=== PATIENT | male | born 1930 | race Caucasian/White ===

== ENCOUNTER 2016-11-01 14:44 | Emergency (ER) | payer MEDICARE ==
--- NOTE | ~2016-11-01 | EKG ---
PATIENT: RADHA CHURCH UNIT #: [id number] Ventricular Rate: 45 BPM Atrial Rate: 45 BPM P-R Interval: 154 ms QRS Duration: 92 ms Q-T Interval: 528 ms QTC Calculation(Bezet): 456 ms P Chandler: 43 degrees Calculated R Chandler: -2 degrees Calculated T Chandler: 12 degrees Diagnosis Line: Sinus bradycardia Diagnosis Line: Inferior infarct , age undetermined Diagnosis Line: Abnormal ECG Diagnosis Line: No previous ECGs available Diagnosis Line: Confirmed by SHRUTI HURLEY MD ([id number]) on 11/01/2016 Diagnosis Line: 6:59:39 PM INTERPRETING MD: XAVI TROTTER
--- NOTE | ~2016-11-01 | CR71 ---
[facility] A Service of [facility] & [facility] RADIOLOGY TEXT RESULTS PATIENT: RADHA CHURCH LOCATION: [facility] : 28 UNIT #: [id number] AGE: [address]: Magaly Mercado MD SEX: M ORDER DR: [id number] [facility] [address] [place], [place] [address] [id number] E MR#: [id number] #: [id number] NAME: RADHA CHURCH : 1930 SEX: M STUDY DATE/TIME: 11/01/2016 16:36 UNIT: [facility] ROOM: STUDY DESCRIPTION: CR Chest Single View Attending Physician: Magaly Mercado M.D. Ordering Physician: Magaly Mercado M.D. Primary Care Physician: Piotr Collins M.D. MEDICAL IMAGING REPORT This report is preliminary unless electronic signature is present EXAM Portable chest 11/01/2016 HISTORY 85-year-old male with shortness of air beginning today. Essential hypertension. COMPARISON STUDIES Chest 11/04/2014. FINDINGS Frontal chest demonstrates clear lungs. No pleural effusion or pneumothorax. Heart size and mediastinum are normal. Pulmonary vasculature normal. Median sternotomy wires. There are multiple old, healed right-sided rib fractures. IMPRESSION No acute cardiopulmonary findings. Dictated by... Ciro Prasad M.D. THIS IS AN ELECTRONICALLY VERIFIED REPORT Ciro Prasad M.D. at 11/02/2016 9:10 AM MONTSE/pcl TD: 11/01/2016 19:21 JOB #: [id number] MEDICAL IMAGING REPORT Page 1 of 1 COPY
[~2016-11-01 14:44] MED LIST: ASPIRIN81 M1 PO; ATENOLOL50 MG PO; PRILOSEC40 MG
[2016-11-01 17:08] LABS: BASOPHIL% 0.7 % (0-2.5); EOSINOPHIL# 0.1 X10e3 (0-0.7); EOSINOPHIL% 1.7 % (0.0-7.0); HEMATOCRIT 35.5 % (38.0-50.0); HEMOGLOBIN 11.6 gm/dL (13.0-16.0); LYMPHOCYTE# 1.5 X10e3 (1.0-3.5); LYMPHOCYTE% 26.7 % (17.0-45.0); MEAN CELL VOLUME 93.8 FL (83-96); MEAN CORPUSCULAR HEMOGLOBIN 30.6 PG (28-34); MEAN CORPUSCULAR HGB CONC 32.6 g/dL (30-36); MEAN PLATELET VOLUME 7.9 FL (6.5-11.5); MONOCYTE# 0.4 X10e3 (0-1.0); MONOCYTE% 7.7 % (3.0-12.0); NEUTROPHIL# 3.6 X10e3 (1.5-7.1); NEUTROPHIL% 63.2 % (40-75); PLATELET COUNT 143 X10e3 (140-420); RED BLOOD COUNT 3.79 X10e (3.90-5.60); RED CELL DISTRIBUTION WIDTH 14.5 % (11.0-15.5); WHITE BLOOD COUNT 5.7 X10e3 (4.0-10.5)
[2016-11-01 17:11] LABS: DIFF IND NO
[2016-11-01 17:33] LABS: POC - CKMB 2.2 ng/mL (0.0-7.9); POC - TROPONIN <0.05 ng/mL (<=0.05)
[2016-11-01 17:33] LABS: BUN/CREATININE RATIO 18.82; CALCIUM SERUM 8.7 mg/dL (8.4-10.2); CREATININE SERUM 1.7 mg/dL (0.6-1.4); GLOM FILT RATE Estimated 35.7 mL/min (>60); POTASSIUM 4.6 mmol/L (3.5-5.1)
[2016-11-01] MEDS ORDERED: FLOMAX0.4 M1 PO (18:13)
[2016-11-01] MEDS ORDERED: OMEPRAZOLE40 M1 PO (18:14)
[2016-11-01] MEDS ORDERED: NAMENDA10 MG PO (18:14)
[2016-11-01] MEDS ORDERED: GABAPENTIN300 MG PO (18:14)
[2016-11-01] MEDS ORDERED: HYTRIN PO (18:15)
[2016-11-01] MEDS ORDERED: SIMVASTATIN20 MG PO (18:15)
[2016-11-01] MEDS ORDERED: BAYER ASPIRIN325 M1 PO (18:16)
[2016-11-01] MEDS ORDERED: ATENOLOL50 MG PO (18:16)
[2016-11-01 18:26] LABS: URINE SOURCE CLEAN CATCH
[2016-11-01 18:32] LABS: URINE APPEARANCE CLEAR; URINE BILIRUBIN NEG (NEG); URINE BLOOD NEG (NEG); URINE COLOR YELLOW; URINE GLUCOSE NEG (NEG); URINE KETONE TRACE (NEG); URINE LEUKOCYTE ESTERASE NEG (NEG); URINE NITRATE NEG (NEG); URINE PROTEIN NEG (NEG); URINE SPECIFIC GRAVITY 1.022 (1.003-1.035)
[2016-11-01 18:35] LABS: CULTURE INDICATED? NO
== END 2016-11-01 20:51 | disposition home or self-care (01) ==
LOC: CED 14:44
PROVIDERS: Emergency Medicine
DX: S61.412A Laceration without foreign body of left hand, initial encounter (principal); R00.1 Bradycardia, unspecified; X58.XXXA Exposure to other specified factors, initial encounter; Y92.009 Unspecified place in unspecified non-institutional (private) residence as the place of occurrence of the external cause
CPT/HCPCS: 36415; 71010; 80048; 81003; 82553; 84484; 85025; 93005; 99284